=== PATIENT | male | born 2005 | race Caucasian/White ===

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

== ENCOUNTER 2024-12-05 21:44 | Emergency (ER) | payer BC, SELFPAY ==
[2024-12-05 21:48] VITALS: BP 161/90; PULSE 107; RESP 16; TEMP 36.9; O2SAT 98; BMI 41.5
--- NOTE | 2024-12-05 21:48 | ECG_ITS ---
[facility] Pat Name: Benny Rivas Department: Room: Gender: Male Neonatal Intensive Care Nurse: : 2005 Requested By: Mir Ng Order Number: [id number] Marialuisa MD: Ammy Vitale M.D. Measurements Intervals [place] Rate: 107 P: 37 VA: 187 QRS: 42 QRSD: 110 T: 58 QT: 331 QTc: 443 Interpretive Statements SINUS TACHYCARDIA ABNORMAL RHYTHM ECG No previous ECG available for comparison Electronically Signed On 12-06-2024 23:56:08 HYDROELECTRIC STATION OPERATOR CHIEF by Ammy Vitale M.D. [email or web address]
--- NOTE | 2024-12-05 21:57 | XRR_ITS ---
PROCEDURE INFORMATION: Exam: XR Chest Exam date and time: 12/05/2024 10:07 PM Age: 18 years old Clinical indication: Pain; Chest pressure; Additional info: Chest pain TECHNIQUE: Imaging protocol: Radiologic exam of the chest. Views: 1 view. COMPARISON: No relevant prior studies available. FINDINGS: Lungs: Unremarkable. No consolidation. Pleural spaces: Unremarkable. No pleural effusion. No pneumothorax. Heart/Mediastinum: Unremarkable. No cardiomegaly. Bones/joints: Unremarkable. XR/XR chest 1V portable [id number] IMPRESSION: No acute findings.
[2024-12-05 22:09] LABS: Basophils # 0.1 10^3/uL (0.0-0.1); Basophils % 0.5 %; Eosinophils # 0.1 10^3/uL (0.0-0.8); Eosinophils % 0.8 %; Hematocrit 46.2 % (37-53); Lymphocytes # 4.4 10^3/uL (1.5-6.5); Lymphocytes % 33.5 %; Mean Corpuscular HGB Conc 34.6 g/dL (30-55); Mean Corpuscular Hemoglobin 31.6 pg (27-33); Mean Corpuscular Volume 91.3 fl (82-101); Mean Platelet Volume 9.5 fL (7.4-10.4); Monocytes # 0.9 10^3/uL (0.2-0.9); Neutrophils # 7.52 10^3/uL (1.8-8.0); Nucleated Red Blood Cells % 0 %; Platelet Count 342 10^3/cmm (157-399); Red Blood Count 5.06 10^6/uL (3.85-5.65); Red Cell Distribution Width 12.7 % (12.1-15.1); White Blood Count 13.22 10^3/uL (4.5-13.0)
[2024-12-05 22:28] LABS: Troponin(5th) Baseline < 6 ng/L (0-15)
[2024-12-05 22:31] LABS: Alanine Aminotransferase 23 U/L (0-41); Albumin Level 4.3 g/dL (3.5-5.2); Alkaline Phosphatase 79 U/L (40-130); Aspartate Amino Transferase 17 U/L (0-40); Blood Urea Nitrogen 16 mg/dL (6-20); Calcium 9.7 mg/dL (8.5-10.5); Carbon Dioxide 26 mmol/L (22-29); Chloride 103 mmol/L (98-107); Creatinine Clr Calc Pharmacy 177.2164; Globulin 2.4 g/dL (1.3-4.6); Glomerular Filtration Rate 85.3 mL/min (90-130); Glucose 98 mg/dL (65-115); Osmolality Calculated 291 mOsm/kg (285-295); Sodium 140 mmol/L (136-145); Total Bilirubin 0.4 mg/dL (0.15-1.2); Total Protein 6.7 g/dL (6.6-8.7)
[2024-12-05 22:32] VITALS: BP 124/87; PULSE 111; RESP 18; O2SAT 97
--- NOTE | 2024-12-05 22:40 | ED_ITS ---
HPI - Chest Pain 2 General: Chief Complaint: Chest Pain Stated Complaint: Chest Pains Time Seen by Provider: 12/05/24 21:57 History of Present Illness: Patient presents to the ER with complaints of left-sided chest pain and a circular nature in the middle of his left chest, says started today about 9:00 AM while driving. He denies getting better or worse. He denies ever having a before. Denies nausea vomiting shortness of breath diaphoresis. Describes it pain as a pressure. He says he should be on thyroid medicine but does not take it. Related Data Allergies Allergy/AdvReac Type Severity Reaction Status Date / Time No Known Allergies Allergy Verified 12/05/24 21:54 Review of Systems 2 General: Reports: 10 or more systems reviewed and unremarkable except in HPI and below Physical Exam 2 Const: COMMON NORMALS: no acute distress, average body habitus, patient oriented x3, no limitations, healthy appearing, alert and well nourished HENMT: COMMON NORMALS: normocephalic, atraumatic, hearing grossly normal bilaterally, external ears normal, Normal external nose present and moist oral mucous membranes HEAD & SCALP: normocephalic and atraumatic NOSE: Normal external nose present EXTERNAL EAR: Yes external ears normal Neck/C-Spine: COMMON NORMALS: no JVD Chest: COMMONS NORMALS: normal inspection of the chest and normal palpation of entire chest wall Resp: COMMON NORMALS: normal respiratory effort, No retractions, No use of accessory muscles and clear to auscultation bilaterally AUSCULTATION: clear to auscultation bilaterally Cardio: COMMON NORMALS: no JVD, regular rate, regular rhythm, S1 normal heart sound present, S2 normal heart sound present, No gallops present (Cardio), No clicks present (Cardio), No murmurs present (Cardio) and No rub (Cardio) R ATE: regular rate RHYTHM: regular rhythm HEART SOUNDS: S1 normal heart sound present and S2 normal heart sound present GI: COMMON NORMALS: Normal to inspection, nondistended, normoactive bowel sounds present, Soft to palpation, non-tender, No hepatosplenomegaly present and no masses PALPATION: Yes Soft to palpation and Yes No hepatosplenomegaly present Neuro: COMMON NORMALS: patient oriented x3 SENSORIUM/ORIENTATION: Yes alert Course 2 Vital Signs: Vital signs: Vital Signs Temperature 98.5 F 12/05/24 21:48 Pulse Rate 89 12/06/24 00:30 Respiratory Rate 18 12/05/24 23:00 Blood Pressure 117/58 12/06/24 00:30 Pulse Oximetry 96 12/06/24 00:30 Oxygen Delivery Me thod Room Air 12/06/24 00:30 MDM - Chest Pain Medical Decision Making Patient was worked up in standard chest pain fashion with serial EKGs, serial enzymes, chest x-ray all of which was essentially benign. Patient be discharged home to follow-up with his PCP. Medical Records I reviewed the patient's medical records. Lab Data I reviewed the patient's lab results. 12/05/24 22:05 12/05/24 22:05 Radiology Impressions Chest X-Ray 12/05/24 21:57 IMPRESSION: No acute findings. Laboratory Results WBC 13.22 10^3/uL (4.5-13.0) H 12/05/24 22:05 RBC 5.06 10^6/uL (3.85-5.65) 12/05/24 22:05 Hgb 16.00 g/dL (13.2-15.6) H 12/05/24 22:05 Hct 46.2 % (37-53) 12/05/24 22:05 MCV 91.3 fl (82-101) 12/05/24 22:05 MCH 31.6 pg (27-33) 12/05/24 22:05 MCHC 34.6 g/dL (30-55) 12/05/24 22:05 RDW 12.7 % (12.1-15.1) 12/05/24 22:05 Plt Count 342 10^3/cmm (157-399) 12/05/24 22:05 MPV 9.5 fL (7.4-10.4) 12/05/24 22:05 Neut % (Auto) 57.0 % 12/05/24 22:05 Lymph % (Auto) 33.5 % 12/05/24 22:05 Shannon % (Auto) 7.0 % 12/05/24 22:05 Eos % (Auto) 0.8 % 12/05/24 22:05 Baso % (Auto) 0.5 % 12/05/24 22:05 Neut # (Auto) 7.52 10^3/uL (1.8-8.0) 12/05/24 22:05 Lymph # (Auto) 4.4 10^3/uL (1.5-6.5) 12/05/24 22:05 Shannon # (Auto) 0.9 10^3/uL (0.2-0.9) 12/05/24 22:05 Eos # (Auto) 0.1 10^3/uL (0.0-0.8) 12/05/24 22:05 Baso # (Auto) 0.1 10^3/uL (0.0-0.1) 12/05/24 22:05 Nucleated RBC % (auto) 0 % 12/05/24 22:05 Nucleated RBCs # 0.0 /100WBC 12/05/24 22:05 Sodium 140 mmol/L (136-145) 12/05/24 22:05 Potassium 4.0 mmol/L (3.5-5.1) 12/05/24 22:05 Chloride 103 mmol/L (98-107) 12/05/24 22:05 Carbon Dioxide 26 mmol/L (22-29) 12/05/24 22:05 Anion Gap 15.0 (5-19) 12/05/24 22:05 BUN 16 mg/dL (6-20) 12/05/24 22:05 Creatinine 1.1 mg/dL (0.7-1.2) 12/05/24 22:05 GFR Calculation 85.3 mL/min (90-130) L 12/05/24 22:05 Glucose 98 mg/dL (65-115) 12/05/24 22:05 Calculated Osmolality 291 mOsm/kg (285-295) 12/05/24 22:05 Calcium 9.7 mg/dL (8.5-10.5) 12/05/24 22:05 Total Bilirubin 0.4 mg/dL (0.15-1.2) 12/05/24 22:05 AST 17 U/L (0-40) 12/05/24 22:05 ALT 23 U/L (0-41) 12/05/24 22:05 Alkaline Phosphatase 79 U/L (40-130) 12/05/24 22:05 Troponin T Baseline < 6 ng/L (0-15) 12/05/24 22:05 Troponin T 120 Minute 6.00 ng/L (0-15) 12/06/24 00:05 Delta Troponin T 0.17670 ABS# (0-10) 12/06/24 00:05 Total Protein 6.7 g/dL (6.6-8.7) 12/05/24 22:05 Albumin 4.3 g/dL (3.5-5.2) 12/05/24 22:05 Globulin 2.4 g/dL (1.3-4.6) 12/05/24 22:05 All radiology interpretation(s) finalized by discharge Discharge Plan Discharge Patient Disposition: Home Clinical Impression: Atypical chest pain Condition: Stable Discharge Orders: Discharge ED (Routine); Ordered 12/06/24 Ordered By: Mir Ng Referrals: Anthony Marie MD [Primary Care Provider] - Patient Instructions: Chest Pain - Noncardiac Activity Restrictions/Additional Instructions: Your evaluation in the ER today that included physical exam, lab work, EKG, chest x-ray all did not point to a cardiac cause of your chest pain. Your chest pain is felt to be noncardiac in nature. Please follow-up with your family practice physician within the next 7 days for further evaluation treatment as needed. Coding Level of Care Code ED Color Adviser for Milly Roca
[2024-12-05 23:00] VITALS: BP 121/83; PULSE 97; RESP 18; O2SAT 96
[2024-12-06] VITALS: BP 105/80; PULSE 93; O2SAT 94
[2024-12-06 00:30] VITALS: BP 117/58; PULSE 89; O2SAT 96
[2024-12-06 00:45] LABS: Troponin 5 2HR Delta 0.00001 ABS# (0-10)
[2024-12-06 01:39] VITALS: BP 118/74; PULSE 95; O2SAT 94
== END 2024-12-06 01:10 | disposition home or self-care (01) ==
PROVIDERS: Emergency Provider Emergency Medicine; PCP Internal Medicine
DX: R07.89 Other chest pain (principal)
CPT/HCPCS: 36415; 71045; 80053; 84484; 85025; 93005; 99285